=== PATIENT | male | born 1960 | race Caucasian/White ===

== ENCOUNTER 2021-06-08 09:21 | Outpatient (CLI) | payer BC, SELFPAY ==
--- NOTE | ~2021-06-08 | CT_ITS ---
EXAMINATION: CT chest abdomen pelvis w con EXAM DATE: 06/08/2021 10:10 INDICATION: Night sweats, fatigue, melanoma, diarrhea. TECHNIQUE: Spiral CT of the chest, abdomen and pelvis was performed following intravenous injection o f 100 mL Omnipaque 350. Axial, coronal and sagittal images chest, abdomen and pelvis were reviewed. Coronal maximum intensity pixel images of chest reviewed. The dose-length product (DLP) for this ex amination was 754.98 mGy-cm. The exposure was tailored according to patient size (auto mA exposure c ontrol), and iterative reconstruction (ASIR) was used as additional dose reduction technique. There is no prior study for comparison. FINDINGS: CHEST: A few scattered lung granulomata. The lungs are otherwise clear. Mild emphysema. There are n o pleural or pericardial effusions. Tracheobronchial tree is patent. There is no mediastinal, hil ar or axillary lymphadenopathy. There is no pneumothorax. Heart normal in size. There is mild c oronary arterial calcification, arterial sclerosis. ABDOMEN PELVIS: Paired bilateral renal arteries. There is fusiform mid abdominal aortic aneurysm deion uring 5.6 cm diameter, starting 1-2 cm below the lowest renal arteries. No dissection. The liver, spleen, adrenal glands and pancreas are unremarkable. Gallbladder is unremarkable. No bi liary obstruction. Portal and splenic veins are patent. Kidneys enhance symmetrically. There is no hydronephrosis. The prostate is unremarkable. The bladder is unremarkable. There is no retroperi toneal or pelvic lymphadenopathy. There is mild to moderate scattered arteriosclerotic disease. There is approximately 10 cm segment of rectosigmoid colon which appears to have diffuse wall thicken ing, hypervascularity and increased enhancement compared to other segments of the colon. This is seen on axial images 200-216. There are no diverticula of this particular segment. Some small lymph nodes seen along the mesentery just above this. No pathologically enlarged lymph nodes. The appendix is no rmal. There is moderate sigmoid predominant colonic diverticulosis. There is no adjacent inflammator y change to suggest diverticulitis. The stomach and small bowel are unremarkable. There is expected amount of colonic stool. No free intraperitoneal gas. There are no osteoblastic or osteolytic les ions identified. IMPRESSION: 1. Segment of rectosigmoid colon with wall thickening, hypervascularity and some adjacent mesenteric lymph nodes. Appearance most consistent with colon cancer. Recommend colonoscopy, biopsy. 2. Fusiform mid abdominal aortic 5.6 cm aneurysm; nonemergent vascular consult. 3. Mild emphysema. Reviewed, dictated and finalized at location B. IMPRESSION: 1. Segment of rectosigmoid colon with wall thickening, hypervascularity and so me adjacent mesenteric lymph nodes. Appearance most consistent with colon cance r. Recommend colonoscopy, biopsy. 2. Fusiform mid abdominal aortic 5.6 cm aneurysm; nonemergent vascular consult . 3. Mild emphysema.
[2021-06-08 09:43] LABS: Estimated Glomerular Filt Rate > 60
== END 2021-06-08 09:22 | disposition home or self-care (01) ==
PROVIDERS: PCP Internal Medicine; Visit Provider Internal Medicine
DX: R61 Generalized hyperhidrosis (principal); K92.1 Melena; R19.7 Diarrhea, unspecified
CPT/HCPCS: 71260; 74177; Q9967